=== PATIENT | male | born 1945 | race American Indian/Alaskan Native ===

== ENCOUNTER 2021-09-24 06:10 | Day surgery (SDC) | payer MEDICARE ==
[2021-09-17 11:03] LABS: Albumin 3.8 g/dL (3.9-5); BUN/Creatinine Ratio 17; Blood Urea Nitrogen 15 mg/dL (9-20); Calcium 9.1 mg/dL (8.4-10.2); Hemolysis Index 13
[2021-09-17 11:08] LABS: Alanine Aminotransferase < 5 units/L (7-56)
[2021-09-17 11:51] LABS: Hematocrit 35.6 % (35.5-45.6); Hemoglobin 11.7 gm/dl (11.8-15.2); Mean Corpuscular HGB Conc 33 % (32-34); Mean Corpuscular Volume 84 fl (84-94); Platelet Count 178 K/mm3 (140-440); Red Blood Count 4.23 M/mm3 (3.65-5.03); Red Cell Distribution Width 15.9 % (13.2-15.2)
[2021-09-24] MEDS ORDERED: LACTATED RINGERS 1,000 ML ONE (06:21)
[2021-09-24] MEDS ORDERED: ceFAZolin/Water 2 GM/20 ML 2 GM/20 ML SYRINGE IV ONE (07:23)
[2021-09-24] MEDS ORDERED: FAMOTIDINE 20 MG/2 ML INJ IV ONE (07:29)
[2021-09-24] MEDS ORDERED: SODIUM CHLORIDE 0.9% 1000 ML 1,000 ML ONE (07:29)
[2021-09-24] MEDS ORDERED: MIDAZOLAM 2 MG/2 ML INJ ONE (07:30)
--- NOTE | 2021-09-24 07:30 | Anesthesia Consultation ---
Anesthesia Consult and Med Hx Date of service: 09/24/21 - Airway Anesthetic Teeth Evaluation: Dentures (upper and lower) ROM Head & Neck: Adequate Mental/Hyoid Distance: Adequate Mallampati Class: Class II Intubation Access Assessment: Probably Good - Pre-Operative Health Status ASA Pre-Surgery Classification: ASA2 Proposed Anesthetic Plan: MAC - Pulmonary Hx Smoking: No Hx Sleep Apnea: No (PHOEBE PRE SCREEN HIGH RISK) - Cardiovascular System Hx Hypertension: Yes (X 2 YRS) Hx Coronary Artery Disease: No (high cholesterol) - Central Nervous System Hx Back Pain: Yes Hx Psychiatric Problems: No - Endocrine Hx Renal Disease: No (BPH) Hx Non-Insulin Dependent Diabetes: Yes (under control with PO meds) - Hematic Hx Anemia: No - Other Systems Hx Cancer: No
--- NOTE | 2021-09-24 07:31 | Anesthesia Day of Surgery ---
Anesthesia Day of Surgery - Day of Surgery Patient Examined: Yes Patient H&P Reviewed: Yes Patient is NPO: Yes
[2021-09-24] MEDS ORDERED: HYDROmorphone 1 MG/1 ML INJ ONE (07:48)
[2021-09-24] MEDS ORDERED: propofoL 200 MG/20 ML VIAL IV ONE (07:49)
[2021-09-24] MEDS ORDERED: LIDOCAINE MPF (2%) 20 MG/1 ML VIAL 5 ML ONE (07:50)
[2021-09-24] MEDS ORDERED: FAMOTIDINE 20 MG/2 ML INJ IV NR (08:00)
[2021-09-24] MEDS ORDERED: MIDAZOLAM 2 MG/2 ML INJ IV NR (08:00)
[2021-09-24] MEDS ORDERED: ONDANSETRON 4 MG/2 ML INJ ONE (08:27)
[2021-09-24] MEDS ORDERED: LACTATED RINGERS 1,000 ML IV SCH (09:00)
--- NOTE | 2021-09-24 11:52 | Operative Report ---
DATE OF SURGERY: 09/24/2021 DATE OF PROCEDURE: 09/24/2021 at approximately 8 a.m. PREOPERATIVE DIAGNOSES:. 1. Progressive and refractory lower urinary tract symptoms despite maximal medical therapy. 2. Benign prostatic hypertrophy. POSTOPERATIVE DIAGNOSES: 1. Progressive and refractory lower urinary tract symptoms despite maximal medical therapy. 2. Benign prostatic hypertrophy. OPERATIVE PROCEDURE: Rezum procedure. ATTENDING: Bc Pastor MD HEAVY COIL WINDER: None. ANESTHESIA: General. ESTIMATED BLOOD LOSS: 10 mL DRAINS: A 20-Bahamian coude catheter. SPECIMENS: None. INDICATIONS FOR PROCEDURE: The patient is a 75-year-old man with progressive lower urinary tract symptoms despite maximal medical therapy. Cystoscopic examination revealed BPH with obstruction. He presents today for an outlet reducing procedure. DESCRIPTION OF PROCEDURE IN DETAIL: After induction of suitable anesthesia and proper positioning and preparation in the dorsal lithotomy position, the Rezum device attached to a cystoscope was used to enter the bladder under direct visualization. There were no urethral strictures. The prostate was reexamined and it was confirmed again to be obstructive and enlarged. Starting on the left lateral lobe, 2 treatments were performed: One at the median bar at 4 o'clock followed by one on the lateral lobe. On the right prostatic lobe, a treatment at 7 o'clock near the bladder neck was performed followed by one in the lateral lobe. There was good dissipation of steam. The patient seemed to have good coverage of his prostate with the treatments. Only two treatments per lobe were performed. At this point, the prostate was reexamined as well as the bladder. There is no evidence of concerning bleeding. The Rezum device was removed. A Watson catheter was placed. It was draining clear urine. The balloon was inflated and attached to gravity drainage. The patient was then awakened from anesthesia and transported to the recovery room in stable condition. He tolerated the procedure well. The patient will return in approximately 5 days for catheter removal in the office. TID: [id number] RECEIPT: [id number] LUZ/DAVID
--- NOTE | 2021-09-24 14:21 | Post Anesthesia Evaluation ---
- Post Anesthesia Evaluation Patient Participated: Yes Airway Patent: Yes Stable Respiratory Function: Yes Nausea/Vomiting: No Temp > 96.8F: Yes Pain Manageable: Yes Adequeate Hydration: Yes Anesthesia Complications: No Block Receding Appropriately: Not Applicable Patient on Ventilator: No
[2021-09-24 14:24] VITALS: BP 130/80
== END 2021-09-24 10:00 | disposition home or self-care (01) ==
LOC: OR 06:10 → EDSEX 08:00 → OR 10:00
PROVIDERS: ATTEND Urology
DX: N40.0 Benign prostatic hyperplasia without lower urinary tract symptoms (principal); E78.00 Pure hypercholesterolemia, unspecified; I10 Essential (primary) hypertension; M19.90 Unspecified osteoarthritis, unspecified site; E11.9 Type 2 diabetes mellitus without complications; Z20.822 Contact with and (suspected) exposure to COVID-19; Z79.899 Other long term (current) drug therapy; Z98.49 Cataract extraction status, unspecified eye; Z98.890 Other specified postprocedural states; Z86.2 Personal history of diseases of the blood and blood-forming organs and certain disorders involving the immune mechanism
CPT/HCPCS: 36415; 53854; 80053; 82962; 85027; J0690; J1170; J2250; J2405; J2704; J3490; J7030; J7120; U0003; Q0162